=== PATIENT | male | born 1935 | race Two or more races ===

== ENCOUNTER 2020-11-14 12:31 | Inpatient (IN) | payer OTHER ==
[~2020-11-14] VITALS: Ht 177.8 cm; Wt 69.2 kg
[2020-11-14 14:13] LABS: Basophils # (auto) 0.1 10 ^3/uL (0-0.2); Basophils % (auto) 0.8 % (0.0-2.0); Eosinophils # (auto) 0.1 10 ^3/uL (0-0.8); Eosinophils % (auto) 1.2 % (0.0-7.0); Hematocrit 36.8 % (41.0-53.0); Hemoglobin 12.6 g/dL (13.5-17.5); Lymphocytes # (auto) 0.9 10 ^3/uL (0.4-5.4); Lymphocytes % (auto) 11.9 % (10.0-50.0); Mean Corpuscular Hemoglobin 31.1 pg (28.0-32.0); Mean Corpuscular Hgb Conc. 34.1 g/dL (32.0-36.0); Mean Corpuscular Volume 91.3 fL (80.0-100.0); Monocytes # (auto) 0.5 10 ^3/uL (0-1.3); Monocytes % (auto) 7.1 % (0.0-12.0); Neutrophils # (auto) 5.7 10 ^3/uL (1.6-8.6); Nucleated Red Blood Cells % 0.1 %; Platelet Count (auto) 347 10^3/uL (140-450); Red Blood Cells 4.03 10^6/uL (4.5-5.90); Red Cell Distribution Width 15.3 % (11.8-14.3); White Blood Cell 7.3 10^3/uL (4.4-10.8)
[2020-11-14 14:27] LABS: Chloride 99 mmol/L (98-107); Potassium 3.6 mmol/L (3.5-5.1); Sodium 135 mmol/L (136-145)
[2020-11-14 14:30] LABS: INR 1.06 (0.9-1.15); Partial Thromboplastin Time 34.4 sec (23.0-31.2)
[2020-11-14 14:39] LABS: Alanine Aminotransferase 26 U/L (16-61); Albumin 3.1 g/dL (3.4-5.0); Alkaline Phosphatase 102 U/L (45-117); Anion Gap 5 (5-15); Aspartate Aminotransferase 20 U/L (15-37); BUN/Creatinine Ratio 14.5; Bilirubin, Total 0.8 mg/dL (0.2-1.0); Blood Urea Nitrogen 8 mg/dL (7-18); Calcium 8.6 mg/dL (8.5-10.1); Carbon Dioxide 31 mmol/L (21-32); GFR African American 182 mL/min; GFR Non-African American 150 mL/min; Glucose 127 mg/dL (74-106); Magnesium 2.1 mg/dL (1.6-2.6); Total Protein 6.5 g/dL (6.4-8.2)
[2020-11-14] MEDS ORDERED: ACETAMINOPHEN 325 MG TAB PO ONE (16:45)
[2020-11-14] MEDS ORDERED: MORPHINE SULF INJ 2 MG/ML SYRINGE 1ML IV PRN ×2 (21:15)
[2020-11-14] MEDS ORDERED: hydrALAZINE HCL 20 MG/ML VL IV PRN (21:15)
[2020-11-14] MEDS ORDERED: ACETAMINOPHEN 500 MG TAB PO PRN (21:15)
[2020-11-14] MEDS ORDERED: NITROGLYCERIN 0.4 MG SL TAB SL PRN (21:15)
[2020-11-14] MEDS ORDERED: LACTULOSE 20Gm/30ML SOLN PO PRN (21:15)
[2020-11-14] MEDS ORDERED: DOCUSATE CALCIUM 240 MG CAP PO PRN (21:15)
[2020-11-14] MEDS ORDERED: SODIUM CHLORIDE 0.9% 1,000 ML IV ONE (21:15)
[2020-11-14] MEDS ORDERED: LORazepam 0.5 MG TAB PO PRN (21:15)
[2020-11-15 06:40] LABS: Potassium 3.5 mmol/L (3.5-5.1)
[2020-11-15 06:54] LABS: Basophils # (auto) 0 10 ^3/uL (0-0.2); Basophils % (auto) 0.7 % (0.0-2.0); Eosinophils # (auto) 0.2 10 ^3/uL (0-0.8); Eosinophils % (auto) 2.6 % (0.0-7.0); Hematocrit 37.5 % (41.0-53.0); Hemoglobin 12.8 g/dL (13.5-17.5); Lymphocytes % (auto) 15.2 % (10.0-50.0); Mean Corpuscular Hemoglobin 31.1 pg (28.0-32.0); Mean Corpuscular Hgb Conc. 34.3 g/dL (32.0-36.0); Mean Corpuscular Volume 90.9 fL (80.0-100.0); Monocytes # (auto) 0.6 10 ^3/uL (0-1.3); Monocytes % (auto) 9.4 % (0.0-12.0); Neutrophils # (auto) 4.7 10 ^3/uL (1.6-8.6); Neutrophils % (auto) 72.1 % (37.0-80.0); Platelet Count (auto) 363 10^3/uL (140-450); Red Blood Cells 4.12 10^6/uL (4.5-5.90); Red Cell Distribution Width 15.2 % (11.8-14.3); White Blood Cell 6.6 10^3/uL (4.4-10.8)
[2020-11-15 07:17] LABS: Albumin 3.1 g/dL (3.4-5.0); BUN/Creatinine Ratio 11.5; Calcium 8.8 mg/dL (8.5-10.1); Total Protein 6.4 g/dL (6.4-8.2)
[2020-11-15] MEDS: PANTOPRAZOLE 40 MG TAB PO SCH (10:02)
[2020-11-15] MEDS: ENOXAPARIN SOD 40 MG/0.4 ML SYRINGE SC SCH (10:02)
[2020-11-15 16:00] VITALS: BP 128/70
[2020-11-15] MEDS ORDERED: IOHEXOL 350 MG/ML 100ML IJ ONE (16:57)
[2020-11-15] MEDS ORDERED: METF-370 PO (17:48)
[2020-11-15] MEDS ORDERED: ATO40T PO (17:48)
[2020-11-15] MEDS ORDERED: CLOP75TA70 PO (17:48)
[2020-11-15] MEDS ORDERED: AML5T PO (17:48)
[2020-11-15] MEDS ORDERED: NITR0.4S29 SL (17:48)
[2020-11-15 22:00] VITALS: BP 151/65
[2020-11-16 05:00] VITALS: BP 131/73
[2020-11-16 08:00] VITALS: BP 139/66
[2020-11-16 08:53] LABS: Basophils # (auto) 0.1 10 ^3/uL (0-0.2); Basophils % (auto) 0.7 % (0.0-2.0); Eosinophils # (auto) 0.2 10 ^3/uL (0-0.8); Eosinophils % (auto) 3.3 % (0.0-7.0); Hematocrit 37.5 % (41.0-53.0); Hemoglobin 12.5 g/dL (13.5-17.5); Lymphocytes % (auto) 15.2 % (10.0-50.0); Mean Corpuscular Hemoglobin 30.5 pg (28.0-32.0); Mean Corpuscular Hgb Conc. 33.4 g/dL (32.0-36.0); Mean Corpuscular Volume 91.4 fL (80.0-100.0); Monocytes # (auto) 0.5 10 ^3/uL (0-1.3); Monocytes % (auto) 8.1 % (0.0-12.0); Neutrophils # (auto) 4.9 10 ^3/uL (1.6-8.6); Neutrophils % (auto) 72.7 % (37.0-80.0); Nucleated Red Blood Cells % 0.1 %; Platelet Count (auto) 387 10^3/uL (140-450); Red Cell Distribution Width 15.3 % (11.8-14.3); White Blood Cell 6.8 10^3/uL (4.4-10.8)
[2020-11-16 09:14] LABS: Calcium 9.3 mg/dL (8.5-10.1); Potassium 3.6 mmol/L (3.5-5.1)
[2020-11-16 09:15] LABS: BUN/Creatinine Ratio 12.2
[2020-11-16 09:19] LABS: Bilirubin, Total 0.7 mg/dL (0.2-1.0); Total Protein 6.3 g/dL (6.4-8.2)
[2020-11-16 10:04] LABS: Urine Amorphous Crystal FEW /hpf (None Seen); Urine Bacteria NONE SEEN /hpf (None Seen); Urine Blood Negative /uL (Negative); Urine WBC 2 /hpf (0 - 3)
[2020-11-16] MEDS: PANTOPRAZOLE 40 MG TAB PO SCH (10:20)
[2020-11-16] MEDS: ENOXAPARIN SOD 40 MG/0.4 ML SYRINGE SC SCH (10:21)
== END 2020-11-16 13:30 | disposition home or self-care (01) | DRG 605 ==
LOC: ER 12:31 → EDBD 12:31 → EDUNIT# 12:31 → TELE 21:03 → TELE-CENTR 11-15 15:39
PROVIDERS: ADMIT Family Medicine; ATTEND Family Medicine
DX: S20.212A Contusion of left front wall of thorax, initial encounter (principal); E87.1 Hypo-osmolality and hyponatremia; D63.8 Anemia in other chronic diseases classified elsewhere; E11.65 Type 2 diabetes mellitus with hyperglycemia; E78.5 Hyperlipidemia, unspecified; I10 Essential (primary) hypertension; J44.9 Chronic obstructive pulmonary disease, unspecified; M19.012 Primary osteoarthritis, left shoulder; X58.XXXA Exposure to other specified factors, initial encounter; Z20.822 Contact with and (suspected) exposure to COVID-19; Z82.49 Family history of ischemic heart disease and other diseases of the circulatory system; Z86.73 Personal history of transient ischemic attack (TIA), and cerebral infarction without residual deficits; Z87.891 Personal history of nicotine dependence; Y93.89 Activity, other specified; Y92.89 Other specified places as the place of occurrence of the external cause; Y99.8 Other external cause status
CPT/HCPCS: 36415; 71045; 71250; 71275; 73030; 80053; 81001; 82962; 83036; 83735; 83880; 84443; 84484; 85025; 85379; 85610; 85730; 87081; 87426; 93005; 93970; 96360; 96372; G0378

== ENCOUNTER 2020-12-03 04:12 | Inpatient (IN) | payer OTHER ==
[~2020-12-03] VITALS: Ht 162.6 cm; Wt 65.3 kg
[~2020-12-03 04:12] MED LIST: AML5T PO; ATO40T PO; CLOP75TA70 PO; METF-370 PO; NITR0.4S29 SL
[2020-12-03] MEDS ORDERED: ACETAMINOPHEN 325 MG TAB PO ONE (05:45)
[2020-12-03 05:49] LABS: Basophils # (auto) 0.1 10 ^3/uL (0-0.2); Eosinophils # (auto) 0.2 10 ^3/uL (0-0.8); Eosinophils % (auto) 3.4 % (0.0-7.0); Hematocrit 35.7 % (41.0-53.0); Lymphocytes # (auto) 0.9 10 ^3/uL (0.4-5.4); Lymphocytes % (auto) 12.4 % (10.0-50.0); Mean Corpuscular Hgb Conc. 33.5 g/dL (32.0-36.0); Mean Corpuscular Volume 92.4 fL (80.0-100.0); Monocytes # (auto) 0.5 10 ^3/uL (0-1.3); Monocytes % (auto) 7.2 % (0.0-12.0); Neutrophils # (auto) 5.4 10 ^3/uL (1.6-8.6); Platelet Count (auto) 361 10^3/uL (140-450); Red Blood Cells 3.87 10^6/uL (4.5-5.90); Red Cell Distribution Width 16.5 % (11.8-14.3); White Blood Cell 7.1 10^3/uL (4.4-10.8)
[2020-12-03 05:54] LABS: Urine Bacteria NONE SEEN /hpf (None Seen); Urine Blood Negative /uL (Negative); Urine Specific Gravity 1.009 (1.001-1.035); Urine WBC <1 /hpf (0 - 3)
[2020-12-03 06:05] LABS: INR 1.02 (0.9-1.15); Partial Thromboplastin Time 30.7 sec (23.0-31.2)
[2020-12-03 06:10] LABS: Albumin 3.3 g/dL (3.4-5.0); Calcium 8.3 mg/dL (8.5-10.1); Potassium 3.7 mmol/L (3.5-5.1)
[2020-12-03 06:18] LABS: BUN/Creatinine Ratio 21.2; Bilirubin, Total 0.9 mg/dL (0.2-1.0); Total Protein 6.2 g/dL (6.4-8.2)
[2020-12-03] MEDS ORDERED: MORPHINE SULF INJ 2 MG/ML SYRINGE 1ML IV PRN ×2 (14:45)
[2020-12-03] MEDS ORDERED: DEXTROSE (50%) 50ML SYRG IV PRN (14:45)
[2020-12-03] MEDS: ENOXAPARIN SOD 80 MG/0.8ML SYRINGE SC SCH ×2 (15:27→21:40)
[2020-12-03] MEDS ORDERED: ATOR40TA52 PO (16:44)
[2020-12-03] MEDS ORDERED: AMLO-483 PO (16:44)
[2020-12-03] MEDS ORDERED: METF-762 PO (16:44)
[2020-12-03] MEDS: InsuLIN REG 1unit/0.01ml Soln (100units/ml) SC SCH ×2 (17:15→21:40)
[2020-12-03] MEDS: ACCU-CHEK COMFORT CURVE STRIP VI SCH ×2 (17:42→21:40)
[2020-12-03] MEDS: ATORVASTATIN 20 MG TAB PO SCH (21:40)
[2020-12-04 05:00] VITALS: BP 125/65
[2020-12-04 05:15] VITALS: BP 125/65
[2020-12-04] MEDS: InsuLIN REG 1unit/0.01ml Soln (100units/ml) SC SCH ×4 (06:00→22:00)
[2020-12-04] MEDS: ACCU-CHEK COMFORT CURVE STRIP VI SCH ×4 (06:00→22:00)
[2020-12-04 08:00] VITALS: BP 145/77
[2020-12-04] MEDS: CLOPIDOGREL BISULFATE 75 MG TAB PO SCH (08:50)
[2020-12-04] MEDS: ENOXAPARIN SOD 80 MG/0.8ML SYRINGE SC SCH ×2 (08:50→22:00)
[2020-12-04] MEDS: NTG 0.1MG/HR TOPICAL PATCH TD SCH (08:50)
[2020-12-04] MEDS: FAMOTIDINE 20 MG TAB PO SCH (08:50)
[2020-12-04 09:50] LABS: BUN/Creatinine Ratio 11.9; Calcium 8.8 mg/dL (8.5-10.1); Potassium 3.6 mmol/L (3.5-5.1)
[2020-12-04 12:00] VITALS: BP 128/72
[2020-12-04] MEDS: HYDROcodone-ACET 5/325MG TAB PO PRN ×2 (12:25→23:44)
[2020-12-04] MEDS ORDERED: ASPirin 81 mg TAB PO ONE (14:30)
[2020-12-04] MEDS ORDERED: ASPirin 81 mg TAB PO SCH (15:30)
[2020-12-04 17:00] VITALS: BP 125/72
[2020-12-04 22:00] VITALS: BP 127/69
[2020-12-04] MEDS: ATORVASTATIN 20 MG TAB PO SCH (22:00)
[2020-12-05 05:30] VITALS: BP 127/67
[2020-12-05 06:47] LABS: Basophils # (auto) 0.1 10 ^3/uL (0-0.2); Basophils % (auto) 0.9 % (0.0-2.0); Eosinophils # (auto) 0.2 10 ^3/uL (0-0.8); Eosinophils % (auto) 3.8 % (0.0-7.0); Hematocrit 35.9 % (41.0-53.0); Hemoglobin 12.5 g/dL (13.5-17.5); Lymphocytes % (auto) 16.8 % (10.0-50.0); Mean Corpuscular Hemoglobin 31.8 pg (28.0-32.0); Mean Corpuscular Hgb Conc. 34.8 g/dL (32.0-36.0); Mean Corpuscular Volume 91.5 fL (80.0-100.0); Monocytes # (auto) 0.6 10 ^3/uL (0-1.3); Monocytes % (auto) 9.4 % (0.0-12.0); Neutrophils # (auto) 4.1 10 ^3/uL (1.6-8.6); Neutrophils % (auto) 69.1 % (37.0-80.0); Platelet Count (auto) 338 10^3/uL (140-450); Red Blood Cells 3.93 10^6/uL (4.5-5.90); White Blood Cell 5.9 10^3/uL (4.4-10.8)
[2020-12-05 06:58] LABS: INR 1.03 (0.9-1.15); Partial Thromboplastin Time 38.3 sec (23.0-31.2)
[2020-12-05] MEDS: ACCU-CHEK COMFORT CURVE STRIP VI SCH ×2 (07:00→11:30)
[2020-12-05] MEDS: InsuLIN REG 1unit/0.01ml Soln (100units/ml) SC SCH ×2 (07:00→11:29)
[2020-12-05 07:07] LABS: Potassium 3.8 mmol/L (3.5-5.1)
[2020-12-05 07:23] LABS: BUN/Creatinine Ratio 13.1; Calcium 8.4 mg/dL (8.5-10.1)
[2020-12-05] MEDS ORDERED: LIDOCAINE 2%HCL (LOCAL ANESTH.) INJ 20ML MDV ONE (08:16)
[2020-12-05 09:00] VITALS: BP 128/83
[2020-12-05] MEDS ORDERED: fentaNYL CITRATE 100 MCG/2 ML VL ONE (09:06)
[2020-12-05] MEDS ORDERED: HEPARIN SODIUM (PORCINE) 5000 UNITS/ML 1ML VIAL ONE (09:06)
[2020-12-05] MEDS ORDERED: ANGIOMAX 250 MG VIAL IV ONE (09:06)
[2020-12-05] MEDS ORDERED: VERAPAMIL 2.5MG/ML INJ 2ML VIAL IV ONE (09:06)
[2020-12-05] MEDS ORDERED: SODIUM CHL 0.9% 0 ML ONE (09:07)
[2020-12-05] MEDS ORDERED: MIDAZOLAM HCL 1MG/1ML-2 ML VIAL ONE (09:07)
[2020-12-05] MEDS ORDERED: SODIUM CHLORIDE 0.9% 1,000 ML IV SCH (10:00)
[2020-12-05] MEDS: NTG 0.1MG/HR TOPICAL PATCH TD SCH (11:25)
[2020-12-05] MEDS: ENOXAPARIN SOD 80 MG/0.8ML SYRINGE SC SCH (11:26)
[2020-12-05] MEDS: CLOPIDOGREL BISULFATE 75 MG TAB PO SCH (11:26)
[2020-12-05] MEDS: FAMOTIDINE 20 MG TAB PO SCH (11:27)
[2020-12-05 13:00] VITALS: BP 155/74
[2020-12-05 17:00] VITALS: BP 134/77
[2020-12-05 17:07] VITALS: BP 134/77
== END 2020-12-05 18:00 | disposition home or self-care (01) | DRG 281 ==
LOC: ER 04:12 → EDBD 04:12 → TELE 04:13 → TELE-EAST 12-04 03:00
PROVIDERS: ADMIT Nurse Practitioner Acute Care; ATTEND Internal Medicine
PROC: 4A023N7 Measurement of Cardiac Sampling and Pressure, Left Heart, Percutaneous Approach (ICD-10-PCS; principal; 2020-12-05)
PROC: B211YZZ Fluoroscopy of Multiple Coronary Arteries using Other Contrast (ICD-10-PCS; 2020-12-05)
PROC: B215YZZ Fluoroscopy of Left Heart using Other Contrast (ICD-10-PCS; 2020-12-05)
DX: I21.A1 Myocardial infarction type 2 (principal); E46 Unspecified protein-calorie malnutrition; E87.1 Hypo-osmolality and hyponatremia; D63.8 Anemia in other chronic diseases classified elsewhere; E11.21 Type 2 diabetes mellitus with diabetic nephropathy; I10 Essential (primary) hypertension; Z20.822 Contact with and (suspected) exposure to COVID-19; E78.5 Hyperlipidemia, unspecified; I25.10 Atherosclerotic heart disease of native coronary artery without angina pectoris; J44.9 Chronic obstructive pulmonary disease, unspecified; Z79.02 Long term (current) use of antithrombotics/antiplatelets; Z82.49 Family history of ischemic heart disease and other diseases of the circulatory system; Z86.73 Personal history of transient ischemic attack (TIA), and cerebral infarction without residual deficits; Z99.81 Dependence on supplemental oxygen; Z88.6 Allergy status to analgesic agent; Z68.25 Body mass index [BMI] 25.0-25.9, adult
CPT/HCPCS: 36415; 71045; 80048; 80053; 80061; 81001; 82550; 82553; 82962; 83735; 83880; 84443; 84484; 85025; 85379; 85610; 85730; 87081; 87426; 93005; 93306; G0378; J1815; J2250

== ENCOUNTER 2020-12-12 00:35 | Emergency (ER) | payer MEDICARE, OTHER ==
[~2020-12-12] VITALS: Ht 170.2 cm; Wt 74.8 kg
[~2020-12-12 00:35] MED LIST changes: -AML5T PO; +AMLO-483 PO; -ATO40T PO; +ATOR40TA52 PO; -METF-370 PO; +METF-762 PO
[2020-12-12 01:40] LABS: Basophils # (auto) 0.1 10 ^3/uL (0-0.2); Eosinophils # (auto) 0.2 10 ^3/uL (0-0.8); Eosinophils % (auto) 3.8 % (0.0-7.0); Hematocrit 37.3 % (41.0-53.0); Hemoglobin 12.6 g/dL (13.5-17.5); Lymphocytes # (auto) 1.1 10 ^3/uL (0.4-5.4); Lymphocytes % (auto) 16.9 % (10.0-50.0); Mean Corpuscular Hemoglobin 31.1 pg (28.0-32.0); Mean Corpuscular Hgb Conc. 33.7 g/dL (32.0-36.0); Mean Corpuscular Volume 92.1 fL (80.0-100.0); Monocytes # (auto) 0.5 10 ^3/uL (0-1.3); Monocytes % (auto) 8.3 % (0.0-12.0); Neutrophils # (auto) 4.4 10 ^3/uL (1.6-8.6); Nucleated Red Blood Cells % 0.1 %; Platelet Count (auto) 325 10^3/uL (140-450); Red Blood Cells 4.05 10^6/uL (4.5-5.90); Red Cell Distribution Width 16.3 % (11.8-14.3); White Blood Cell 6.3 10^3/uL (4.4-10.8)
[2020-12-12 01:42] LABS: INR 1.03 (0.9-1.15); Partial Thromboplastin Time 33.1 sec (23.0-31.2)
[2020-12-12 01:43] LABS: Albumin 3.1 g/dL (3.4-5.0); Potassium 3.4 mmol/L (3.5-5.1)
[2020-12-12 01:51] LABS: Bilirubin, Total 0.7 mg/dL (0.2-1.0); Total Protein 5.8 g/dL (6.4-8.2)
[2020-12-12] MEDS ORDERED: MORPHINE SULFATE 4 MG/ML SYR/VIAL IV ONE (02:15)
[2020-12-12] MEDS ORDERED: ONDANSETRON HCL 4 MG/2 ML VIAL IV ONE (02:15)
[2020-12-12] MEDS ORDERED: CLOPIDOGREL BISULFATE 75 MG TAB PO ONE (02:30)
[2020-12-12] MEDS ORDERED: ACETAMINOPHEN 325 MG TAB PO ONE (02:30)
[2020-12-12 04:06] VITALS: BP 154/88
== END 2020-12-12 04:15 | disposition short-term general hospital (02) ==
LOC: EDBD 00:35 → ER 00:38
DX: R07.89 Other chest pain (principal); J44.9 Chronic obstructive pulmonary disease, unspecified; E11.9 Type 2 diabetes mellitus without complications; E78.5 Hyperlipidemia, unspecified; I10 Essential (primary) hypertension; I25.2 Old myocardial infarction; Z20.822 Contact with and (suspected) exposure to COVID-19; Z86.73 Personal history of transient ischemic attack (TIA), and cerebral infarction without residual deficits
CPT/HCPCS: 36415; 71045; 80053; 83735; 83880; 84484; 85025; 85379; 85610; 85730; 87426; 93005

== ENCOUNTER 2024-05-12 11:08 | Emergency (ER) | payer OTHER, MEDICARE ==
[~2024-05-12] VITALS: Ht 177.8 cm; Wt 63.5 kg
[~2024-05-12 11:08] MED LIST changes: -AMLO-483 PO; +AMLO1TAB21 PO
[2024-05-12 13:19] LABS: Basophils # (auto) 0.1 10 ^3/uL (0-0.2); Basophils % (auto) 0.8 % (0.0-2.0); Eosinophils # (auto) 0.2 10 ^3/uL (0-0.8); Eosinophils % (auto) 2.3 % (0.0-7.0); Hematocrit 43.5 % (41.0-53.0); Hemoglobin 14.7 g/dL (13.5-17.5); Lymphocytes # (auto) 0.7 10 ^3/uL (0.4-5.4); Lymphocytes % (auto) 10.8 % (10.0-50.0); Mean Corpuscular Hemoglobin 29.8 pg (28.0-32.0); Mean Corpuscular Hgb Conc. 33.9 g/dL (32.0-36.0); Monocytes # (auto) 0.5 10 ^3/uL (0-1.3); Monocytes % (auto) 7.6 % (0.0-12.0); Neutrophils # (auto) 5.2 10 ^3/uL (1.6-8.6); Neutrophils % (auto) 78.5 % (37.0-80.0); Nucleated Red Blood Cells % 0.1 %; Red Blood Cells 4.94 10^6/uL (4.5-5.90); Red Cell Distribution Width 18.1 % (11.8-14.3); White Blood Cell 6.6 10^3/uL (4.4-10.8)
[2024-05-12 13:26] LABS: Anion Gap 7 (5-15); Carbon Dioxide 28 mmol/L (20-30); Chloride 102 mmol/L (98-107); Potassium 3.9 mmol/L (3.5-5.1); Sodium 137 mmol/L (136-145)
[2024-05-12 13:27] LABS: Calcium 9.9 mg/dL (8.7-10.4)
[2024-05-12 13:32] LABS: BUN/Creatinine Ratio 12.6 (10.0-20.0); Blood Urea Nitrogen 11 mg/dL (9-23); Glucose 144 mg/dL (74-106); Magnesium 1.9 mg/dL (1.6-2.6)
[2024-05-12 15:36] VITALS: PULSE 57; RESP 16; TEMP 97.6; O2SAT 100
[2024-05-12] MEDS: hydrALAZINE HCL 20 MG/ML VL IV ONE (15:48)
[2024-05-12 16:25] VITALS: BP 120/87
== END 2024-05-12 17:13 | disposition home or self-care (01) ==
LOC: ER 11:08
DX: I10 Essential (primary) hypertension (principal); R53.1 Weakness; J44.9 Chronic obstructive pulmonary disease, unspecified; E11.9 Type 2 diabetes mellitus without complications; E78.5 Hyperlipidemia, unspecified; Z79.82 Long term (current) use of aspirin; Z79.899 Other long term (current) drug therapy; Z86.73 Personal history of transient ischemic attack (TIA), and cerebral infarction without residual deficits
CPT/HCPCS: 36415; 71045; 80048; 83735; 84443; 84484; 85025; 93005; 96374; 99285; J0360

== ENCOUNTER 2024-10-30 12:09 | Emergency (ER) | payer OTHER, MEDICARE ==
[~2024-10-30] VITALS: Ht 177.8 cm; Wt 70.0 kg
--- NOTE | 2024-10-30 13:42 | ED.PDOC ---
Musculoskeletal HPI Comments 89-year-old male brought in by self, referred by [facility] for evaluation of left calf swelling and pain, patient states started yesterday. Patient denies any injury to that area, difficulty walking, chest pain or shortness of breath. Chief Complaint: Lower Extremity Time Seen by MD: 13:30 Primary Care Provider: michi Reviewed Notes: Nurses Notes, Medications, Allergies Allergies: Coded Allergies: Aspirin (Verified Allergy, Intermediate, 11/14/20) Home Meds Reported Medications Metformin Hydrochloride (Metformin Hydrochloride E) 500 Mg Tab, 500 MG PO BID 12/03/20 Atorvastatin Calcium (ATORVASTATIN CALCIUM) 40 Mg Tab, 1 TAB PO DAILY 12/03/20 Amlodipine Besylate (Amlodipine Besylate) 2.5 Mg Tab, 1 TAB PO DAILY 12/03/20 Nitroglycerin (Nitrostat) 0.4 Mg Sub, 0.4 MG SL PRN, INJ 11/15/20 Clopidogrel Bisulfate (CLOPIDOGREL) 75 Mg Tab, 75 MG PO DAILY 11/15/20 Information Source: Patient Mode of Arrival: Ambulatory Location: Left Extremity Location: Leg Timing: Days Prehospital treatment: None Severity: Mild Able to Move Extremity: Yes Bear Weight: Fully Pain: Moderate Mechanism: None Symptoms: Swelling, Pain Associated signs and symptoms: None Past Medical History PAST MEDICAL HISTORY: COPD, CVA, DM, High Lipids, HTN, OH, TIA Past Medical History (Other): PUD Surgical History (Other): Surgery for peptic ulcer disease Family History Family History: Family hx of HTN Social History Smoker: Non-Smoker Alcohol: Denies ETOH Use Drugs: Denies Drug Use Lives In: Home Constitutional: denies: chills, diaphoresis, fatigue, fever, malaise, sweats, weakness, others EENTM: denies: blurred vision, double vision, ear bleeding, ear discharge, ear drainage, ear pain, ear ringing, eye pain, eye redness, hearing loss, mouth pain, mouth swelling, nasal discharge, nose bleeding, nose congestion, nose pain, photophobia, tearing, throat pain, throat swelling, voice changes, others Respiratory: denies: cough, hemoptysis, orthopnea, SOB at rest, shortness of breath, SOB with excertion, stridor, wheezing, others Cardiovascular: denies: chest pain, dizzy spells, diaphoresis, Dyspnea on exertion, edema, irregular heart beat, left arm pain, lightheadedness, palpitations, PND, syncope, others Gastrointestinal: denies: abdomen distended, abdominal pain, blood streaked bowels, constipated, diarrhea, dysphagia, difficulty swallowing, hematemesis, melena, nausea, poor appetite, poor fluid intake, rectal bleeding, rectal pain, vomiting, others Genitourinary: denies: burning, dysuria, flank pain, frequency, hematuria, incontinence, penile discharge, penile sore, pain, testicle pain, testicle swelling, urgency, others Neurological: denies: dizziness, fainting, headache, left sided numbness, left sided weakness, numbness, paresthesia, pre-existing deficit, right sided numbness, right sided weakness, seizure, speech problems, tingling, tremors, weakness, others Musculoskeletal: reports: others (LEFT LEG PAIN); denies: back pain, gout, joint pain, joint swelling, muscle pain, muscle stiffness, neck pain Integumetry: denies: bruises, change in color, change in hair/nails, dryness, laceration, lesions, lumps, rash, wounds, others Allergic/Immunocompromised: denies: Difficulty Healing, Frequent Infections, Hives, Itching, others Hematologic/Lymphatic: denies: anemia, blood clots, easy bleeding, easy brui sing, swollen glands, others Endocrine: denies: excessive hunger, excessive sweating, excessive thirst, ex cessive urination, flushing, intolerance to cold, intolerance to heat, unexplained weight gain, unexplained weight loss, others Psychiatric: denies: anxiety, bipolar disorder, depression, hopeless, panic disorder, schizophrenia, sleepless, suicidal, others All Other Systems: Reviewed and Negative Physical Exam General Appearance: No Apparent Distress HEENT: Other (Pupils symmetric, no facial asymmetry) Neck: Full Range of Motion, Normal Inspection Respiratory: Lungs Clear, No Accessory Muscle Use, No Respiratory Distress, Normal Breath Sounds Cardiovascular: No JVD, Regular Rate/Rhythm Breast Exam: Deferred Gastrointestinal: Non Tender, Soft Genitalia: Deferred Pelvic: Deferred Rectal: Deferred Extremities: Normal range of motion, No pedal edema, Other (Left calf localized soft tissue swelling and soft tissue tenderness. No erythema, fluctuance, skin lesion or discharge.) Neurologic: Alert (Oriented x4), Normal Affect, Normal Mood, Other (Ambulatory without difficulty. No gross focal deficit.) Cerebellar Function: NOT DONE Reflexes: NOT DONE Skin: Dry, Normal Color, Warm Lymphatic: NOT DONE Was a procedure done? Was a procedure done?: No Differential Diagnosis EXT Differential Diagnosis: Cellulitis, Deep Vein Thrombosis, Sprain, Contusion, Strain, Other (Muscle spasm, ruptured Vang cyst, neoplastic disease, other fluid collection, among others) X-Ray, Labs, Meds, VS Vital Signs Date Time Temp Pulse Resp B/P (MAP) Pulse Ox O2 Delivery O2 Flow Rate FiO2 10/30/24 13:00 98.0 71 16 145/75 (98) 98 Lab Test 10/30/24 14:07 Range/Units White Blood Count 7.4 4.4-10.8 10^3/uL Red Blood Count 4.63 4.5-5.90 10^6/uL Hemoglobin 14.1 13.5-17.5 g/dL Hematocrit 42.2 41.0-53.0 % Mean Corpuscular Volume 91.0 80.0-100.0 fL Mean Corpuscular Hemoglobin 30.4 28.0-32.0 pg Mean Corpuscular Hemoglobin Concent 33.4 32.0-36.0 g/dL Red Cell Distribution Width 17.9 H 11.8-14.3 % Platelet Count 346 140-450 10^3/uL Mean Platelet Volume 7.9 6.9-10.8 fL Neutrophils (%) (Auto) 81.0 H 37.0-80.0 % Lymphocytes (%) (Auto) 9.7 L 10.0-50.0 % Monocytes (%) (Auto) 6.9 0.0-12.0 % Eosinophils (%) (Auto) 1.2 0.0-7.0 % Basophils (%) (Auto) 1.2 0.0-2.0 % Neutrophils # (Auto) 6.0 1.6-8.6 10 ^3/uL Lymphocytes # (Auto) 0.7 0.4-5.4 10 ^3/uL Monocytes # (Auto) 0.5 0-1.3 10 ^3/uL Eosinophils # (Auto) 0.1 0-0.8 10 ^3/uL Basophils # (Auto) 0.1 0-0.2 10 ^3/uL Nucleated Red Blood Cells 0.1 % Prothrombin Time 10.7 9.3-11.8 sec Prothrombin Time INR 1.01 0.9-1.15 Activated Partial Thromboplast Time 31.5 24.5-34.5 SEC Sodium Level 134 L 136-145 mmol/L Potassium Level 4.1 3.5-5.1 mmol/L Chloride Level 101 98-107 mmol/L Carbon Dioxide Level 30 20-31 mmol/L Anion Gap 3 L 5-15 Blood Urea Nitrogen 19 9-23 mg/dL Creatinine 0.69 L 0.700-1.30 mg/dL Glomerular Filtration Rate Calc 88 >90 mL/min BUN/Creatinine Ratio 27.5 H 10.0-20.0 Serum Glucose 98 74-106 mg/dL Calcium Level 10.1 8.7-10.4 mg/dL [place] [address] Ph: [phone] DIAGNOSTIC IMAGING Diagnostic Imaging Report : [id number] Signed PATIENT: RADHA MYERS ACCT: [id number] UNIT: [id number] : 1935 LOC: ER ROOM / BED: / AGE / SEX: 89 / M ADM STATUS: REG ER SERVICE [id number] ORDERING PHYSICIAN: JORGE RESENDIZ MD PROCEDURE(s): LLDVT - LT Lower DVT REASON: L calf tenderness/swelling ORDER NUMBER(s): [id number], ACCESSION NUMBER(s): [id number] LEFT lower extremity venous duplex Clinical History: L calf tenderness/swelling Comparison: 11/15/2020 Technique: Duplex Doppler evaluation of the deep venous systems of LEFT lower extremities from the common femoral veins to the popliteal veins including color Doppler and spectral/pulsed waveform analysis was performed. Findings: LEFT SIDE: The common femoral vein demonstrates appropriate compressibility and waveform variability. There is compressibility/patency of the great saphenous vein at the proximal thigh. The femoral vein demonstrates appropriate compressibility and waveform variability. The deep femoral vein demonstrates appropriate compressibility and waveform variability. The popliteal vein demonstrates appropriate compressibility and waveform variability. There is normal compressibility at the tibioperoneal trunk. 2.5 cm inguinal lymph node on the left. Impression: 1. No left femoropopliteal venous thrombosis. HS:Y ATED BY: ANDREA HERNANDEZ Jr., DO DICTATED DATE/TIME: 10/30/241409 SIGNED BY: ANDREA HERNANDEZ Jr., SIGNED DATE/TIME: 10/30/241409 CC: X-Ray, Labs, Meds, VS Comment 89-year-old male with a history of hypertension, diabetes, dyslipidemia, CVA, mi, PUD referred by [facility] for evaluation of left calf swelling and tenderness Vitals remarkable for BP 145/75 Exam remarkable for localized left calf soft tissue tenderness and soft tissue swelling. No fluctuance or discoloration Rhythm strip independently interpreted by me: Sinus rhythm, rate 71, no ectopy. Left lower extremity ultrasound negative for DVT. 2.5 cm left inguinal lymph node CBC unremarkable. Differential shows a left shift. Metabolic panel remarkable for sodium 134. Coagulation panel normal. Patient declined any pain medication in the ED. He received Rocephin 1 g IM for coverage of possible early cellulitis. Patient is well-appearing, workup is essentially unremarkable, and I am comfortable discharging the patient with close follow-up at [facility]. Rx Keflex, Tylenol Time of 1ST Reevaluation: 14:00 Reevaluation 1ST: Unchanged Patient Education/Counseling: Diagnosis, Treatment Family Education/Counseling: No Family Present Departure 1 Departure Time of Disposition: 15:54 Impression: Primary Impression: Left leg cellulitis Disposition: HOME / SELF CARE / HOMELESS Condition: Stable Additional Instructions: Your blood tests were unremarkable. Your ultrasound did not show any blood clot. The report is below. The swelling in your leg may be due to mild skin or soft tissue infection. I have prescribed antibiotics and pain medicine. Follow-up with your primary doctor in 1-2 days for recheck. [place] [address] Ph: [phone] DIAGNOSTIC IMAGING Diagnostic Imaging Report : [id number] Signed PATIENT: RADHA MYERS ACCT: [id number] UNIT: [id number] : 1935 LOC: ER ROOM / BED: / AGE / SEX: 89 / M ADM STATUS: REG ER SERVICE [id number] ORDERING PHYSICIAN: JORGE RESENDIZ MD PROCEDURE(s): LLDVT - LT Lower DVT REASON: L calf tenderness/swelling ORDER NUMBER(s): [id number], ACCESSION NUMBER(s): [id number] LEFT lower extremity venous duplex Clinical History: L calf tenderness/swelling Comparison: 11/15/2020 Technique: Duplex Doppler evaluation of the deep venous systems of LEFT lower extremities from the common femoral veins to the popliteal veins including color Doppler and spectral/pulsed waveform analysis was performed. Findings: LEFT SIDE: The common femoral vein demonstrates appropriate compressibility and waveform variability. There is compressibility/patency of the great saphenous vein at the proximal thigh. The femoral vein demonstrates appropriate compressibility and waveform variability. The deep femoral vein demonstrates appropriate compressibility and waveform variability. The popliteal vein demonstrates appropriate compressibility and waveform variability. There is normal compressibility at the tibioperoneal trunk. 2.5 cm inguinal lymph node on the left. Impression: 1. No left femoropopliteal venous thrombosis. HS:Y ATED BY: ANDREA HERNANDEZ Jr. DO DICTATED DATE/TIME: 10/30/24 1410 e-Prescriptions Acetaminophen (Tylenol) 325 Mg Cap 650 MG PO Q4HP PRN, #30 CAP Prov: JORGE RESENDIZ MD 10/30/24 Cephalexin Monohydrate (Cephalexin) 500 Mg Cap 1 CAP PO QID for 10 Days, #40 CAP Prov: JORGE RESENDIZ MD 10/30/24 Discharged With: Self Critical Care Note Critical Care Time?: No Stability Stability form required: No Heart Score Heart Score: Heart Score Response (Comments) Value History N/A 0 EKG N/A 0 Age N/A 0 Risk Factors N/A 0 Troponin N/A 0 Total 0 I personally scribed for JORGE RESENDIZ MD ([email or web address]) on 10/30/24 at 13:42. Electronically submitted by Toya Sommer ([email or web address]). I personally scribed for JORGE RESENDIZ MD ([email or web address]) on 10/30/24 at 14:19. Electronically submitted by Toya Sommer ([email or web address]). JORGE RESENDIZ MD Oct 30, 2024 13:42
--- NOTE | 2024-10-30 14:13 | DVH ---
LEFT lower extremity venous duplex Clinical History: L calf tenderness/swelling Comparison: 11/15/2020 Technique: Duplex Doppler evaluation of the deep venous systems of LEFT lower extremities from the common femora l veins to the popliteal veins including color Doppler and spectral/pulsed waveform analysis was perf ormed. Findings: LEFT SIDE: The common femoral vein demonstrates appropriate compressibility and waveform variability. There is compressibility/patency of the great saphenous vein at the proximal thigh. The femoral vein demonstrates appropriate compressibility and waveform variability. The deep femoral vein demonstrates appropriate compressibility and waveform variability. The popliteal vein demonstrates appropriate compressibility and waveform variability. There is normal compressibility at the tibioperoneal trunk. 2.5 cm inguinal lymph node on the left. Impression: 1. No left femoropopliteal venous thrombosis. HS:Y
[2024-10-30 14:28] LABS: Basophils # (auto) 0.1 10 ^3/uL (0-0.2); Basophils % (auto) 1.2 % (0.0-2.0); Eosinophils # (auto) 0.1 10 ^3/uL (0-0.8); Eosinophils % (auto) 1.2 % (0.0-7.0); Hematocrit 42.2 % (41.0-53.0); Hemoglobin 14.1 g/dL (13.5-17.5); Lymphocytes # (auto) 0.7 10 ^3/uL (0.4-5.4); Lymphocytes % (auto) 9.7 % (10.0-50.0); Mean Corpuscular Hemoglobin 30.4 pg (28.0-32.0); Mean Corpuscular Hgb Conc. 33.4 g/dL (32.0-36.0); Monocytes # (auto) 0.5 10 ^3/uL (0-1.3); Monocytes % (auto) 6.9 % (0.0-12.0); Nucleated Red Blood Cells % 0.1 %; Platelet Count (auto) 346 10^3/uL (140-450); Red Blood Cells 4.63 10^6/uL (4.5-5.90); Red Cell Distribution Width 17.9 % (11.8-14.3); White Blood Cell 7.4 10^3/uL (4.4-10.8)
[2024-10-30 14:39] LABS: INR 1.01 (0.9-1.15); Partial Thromboplastin Time 31.5 SEC (24.5-34.5); Prothrombin Time 10.7 sec (9.3-11.8)
[2024-10-30 14:52] LABS: Chloride 101 mmol/L (98-107); Potassium 4.1 mmol/L (3.5-5.1)
[2024-10-30 14:53] LABS: Anion Gap 3 (5-15); Carbon Dioxide 30 mmol/L (20-31)
[2024-10-30 14:54] LABS: Calcium 10.1 mg/dL (8.7-10.4)
[2024-10-30 14:58] LABS: Glucose 98 mg/dL (74-106)
[2024-10-30 14:59] LABS: BUN/Creatinine Ratio 27.5 (10.0-20.0); Blood Urea Nitrogen 19 mg/dL (9-23)
[2024-10-30 15:02] LABS: Sodium 134 mmol/L (136-145)
[2024-10-30] MEDS ORDERED: ACET1CAP14 PO (16:01)
[2024-10-30] MEDS ORDERED: CEPH500C PO (16:01)
[2024-10-30 16:50] VITALS: BP 160/84; PULSE 74; RESP 18; TEMP 98.3; O2SAT 100
[2024-10-30] MEDS: cefTRIAXone W LIDOCAINE 1 GM IM IM ONE (16:50)
== END 2024-10-30 16:52 | disposition home or self-care (01) ==
LOC: ER 12:09
DX: L03.116 Cellulitis of left lower limb (principal); I10 Essential (primary) hypertension; E11.9 Type 2 diabetes mellitus without complications; E78.5 Hyperlipidemia, unspecified; I25.2 Old myocardial infarction; J44.9 Chronic obstructive pulmonary disease, unspecified; Z79.899 Other long term (current) drug therapy; Z86.73 Personal history of transient ischemic attack (TIA), and cerebral infarction without residual deficits; Z87.11 Personal history of peptic ulcer disease; Z88.6 Allergy status to analgesic agent
CPT/HCPCS: 36415; 80048; 85025; 85610; 85730; 93971; 96372; 99285; J0696